=== PATIENT | female | born 1985 | race Asian ===

== ENCOUNTER 2018-05-31 15:26 | Inpatient (IN) | payer BC ==
[2018-05-31] MEDS ORDERED: Lidocaine 1% (PF) 30 ML VIAL SC PRN (15:55)
[2018-05-31] MEDS ORDERED: Ondansetron HCl/PF 4 MG/2 ML Vial IVP PRN (15:55)
[2018-05-31] MEDS ORDERED: Promethazine HCl 25 MG/ML VIAL IM PRN (15:55)
[2018-05-31] MEDS ORDERED: Ibuprofen 800 MG TAB PO PRN (15:55)
[2018-05-31 15:57] VITALS: BMI 30.7
[2018-05-31] MEDS: Lactated Ringer's 1,000 ML IV SCH (16:05)
[2018-05-31] MEDS ORDERED: CEFAZOLIN/Water 2 GM/20 ML SYRINGE ONE (16:05)
[2018-05-31 16:19] LABS: Hemoglobin 12.2 g/dL (12.0-16.0); Mean Corpuscular HGB CONC 33.8 g/dL (32.0-36.0); Mean Corpuscular Hemoglobin 29.5 pg (27.0-31.0); Mean Corpuscular Volume 87.1 fL (78.0-98.0); Mean Platelet Volume 8.1 fL (7.4-10.4); Platelet Count 202 thou/uL (130-400); RBC Distribution Width 13.1 % (11.5-14.5); Red Blood Cell (RBC) Count 4.14 mill/uL (4.20-5.40); White Blood Cell (WBC) Count 10.8 thou/uL (4.8-10.8)
[2018-05-31] MEDS: NS / Oxytocin 40 units/1000ml 1,000 ML IV PRN ×2 (16:30→18:50)
--- NOTE | 2018-05-31 16:39 | PDOC.FPRHP ---
- History of Present Illness Chief Complaint: SROM History of Present Illness: This Female presented to ED with SROM at 39.4 wks based on LMP. Her and previous pregnancies have been without complication to date. ED Course: presented to ED with SROM, transferred to - Allergies/Adverse Reactions Allergies Allergy/AdvReac Type Severity Reaction Status Date / Time Penicillins Allergy Mild Rash Verified 05/31/18 15:54 - Home Medications Medication Instructions Recorded Confirmed Type Ferrous Sulfate [Feosol] 325 mg PO BID-WM #60 tab 02/07/16 05/31/18 Rx Vit No.130/Iron/Folic 1 tab PO DAILY #30 tablet 02/07/16 05/31/18 Rx [ Tablet] Acyclovir 400 mg PO BID 05/31/18 05/31/18 History - History PMHx:HSX on suppression therapy, no active lesions. GBS positive PSHx: none FHx:none Social: negative - Review of Systems General: reports: weight/appetite/sleep changes. denies: fever/chills, night sweats Eyes: denies: eye pain, vision changes Respiratory: denies: cough, shortness of breath Cardiovascular: denies: chest pain, palpitation Gastrointestinal: reports: nausea, vomiting. denies: diarrhea Genitourinary: reports: incontinence, dysuria Skin: denies: rashes, lesions Musculoskeletal: denies: pain, tenderness Neurological: denies: numbness, syncope - Vital signs BP: [125/80] HR: [68] RR: [16] Tmax: [98.6] - Physical Exam Constitutional: other (Presented in severe pain from contractions) HEENT: normocephalic and atraumatic, no scleral icterus, grossly normal vision Heart: RRR, normal S1/S2, no murmurs/rubs/gallops Lungs: CTAB, no respiratory distress, no rales/rhonchi, no wheezing Abdomen: other (gravid uterus) Musculoskeletal: normal structure, normal tone Neurological: no focal deficit, normal sensation Skin: no rash/lesions, no jaundice Heme/Lymphatic: no unusual bruising or bleeding, no petechia Psychiatric: normal mood and affect FMR H&P: Results - Labs Result Diagrams: 05/31/18 16:00 Lab results: WBC 10.8 thou/uL (4.8-10.8) 07/13/18 16:00 Hgb 12.2 g/dL (12.0-16.0) 05/31/18 16:00 Hct 36.0 % (36.0-47.0) 05/31/18 16:00 MCV 87.1 fL (78.0-98.0) 05/31/18 16:00 Plt Count 202 thou/uL (130-400) 05/31/18 16:00 FMR H&P: A/P - Problem List (1) Spontaneous vaginal delivery Current Visit: Yes Status: Acute Code(s): O80 - ENCOUNTER FOR FULL-TERM UNCOMPLICATED DELIVERY (2) Group B streptococcal infection during Current Visit: Yes Status: Acute Code(s): O98.819 - OTH MATERNAL INFEC/ PARASTC DISEASES COMP PREG, UNSP TRI; B95.1 - STREPTOCOCCUS, GROUP B, CAUSING DISEASES CLASSD ELSWHR - Plan 1. Spontaneous vaginal delivery -TAGA female with apgars 9/9 at 1600 05/31/18 -no lacerations -EBL pending weights 2. Group B strep (+) -Treated with Cefazolin 2 g IV prior to delivery - Inadequately treated Dispo: uncomplicated vaginal delivery, transfer to post- for monitoring overnight FMR H&P: Upper Level - Plan Date/Time: 05/31/18 1633 I, [], have evaluated this patient and agree with findings/plan as outlined by fashion intern resident. Pertinent changes/additions are listed here. FMR OB Labor PN: Data - Labs Lab results: Laboratory Results - last 24 hr 05/31/18 05/31/18 05/31/18 16:00 16:00 16:00 WBC 10.8 RBC 4.14 L Hgb 12.2 Hct 36.0 MCV 87.1 MCH 29.5 MCHC 33.8 RDW 13.1 Plt Count 202 MPV 8.1 Syphilis IgG/IgM Ab Nonreactive Blood Type O POSITIVE Antibody Screen NEGATIVE HIV neg, GBS +, rubella immune, hep B -, 3 hr GTT 80, 85, 118, 80. Attending Addendum - Attending Addendum Date/Time: 05/31/18 1913 I personally evaluated the patient and discussed the management with Dr. Maharaj I agree with the History, Examination, Assessment and Plan documented above with any addition or exceptions noted below- 32 yo @39 weeks presented after SROM @1545 and ctx since early afternoon. Patient presented with advanced dilatation and rapidly progressed to complete. See delivery note for further details.
--- NOTE | 2018-05-31 16:53 | PDOC.OPDEL ---
OB Operative/Delivery Note Delivery Dr/Surgeon: Dr. Maharaj Assist: Dr. Dodd Pre-Delivery Diagnosis: active labor, ruptured membrane, other (GBS +) Procedure/Post Delivery Dx: other (GBS inadequately treated) Weeks gestation: 39 (39.4) Anesthesia: none - Findings A Sex: female - 1 min: 9 - 5 min: 9 - Additional Findings/Plan Placenta delivered: spontaneous Repaired Obstetrical Laceration: none Estimated blood loss: pending weight Compilations/Other Findings: Delivery Note: This is 32 yo F @ 39.4wks who delivered a viable M/F infant at 1640. Following an uneventful antepartum course, a vigorous female was delivered over an intact perineum in the YARELY position. Anterior Shoulder and then remainder of the body delivered. No nuchal cord. The head was held down and mouth and nares were bulb suctioned. Cord clamped after 30 secs and cut and cord blood collected. Placenta delivered intact (in the Naranjo presentation) with a 3 vessel cord noted. Fundal massage was performed and the fundus was firm. The cervix and vagina were inspected and found to be free of lacerations. went to nursery in good condition for routine care. Apgars were 9/9 at 1 & 5 minutes, respectively. Patient tolerated delivery well and went to after routine recovery/care. Post delivery plan: routine recovery <Beka Maharaj - Last Filed: 05/31/18 18:13> Attending Addendum - Attending Addendum Date/Time: 05/31/181914 I was present and personally supervised the of viable female infant to a 32 yo at 39 weeks. Apgars 9/9, Placenta delivered spontaneously and intact. 3 V cord. No epis or lacerations. IGC=461 mL. Infant and mother in stable condition. GBS (+) treated with 1 dose of cefazolin immediately prior to delivery. <Charlee Dodd - Last Filed: 05/31/18 19:22>
[2018-05-31 17:02] LABS: Syphilis Antibody Nonreactive (Nonreactive); Syphilis Antibody Index 0.08 S/CO (<1.00 Non-Reactive)
[2018-05-31 17:03] LABS: HBSAg Index 0.16 S/CO (0-0.99); Hep B Surf Ag Non-Reactive S/CO (NonReactive)
[2018-05-31] MEDS ORDERED: CEFAZOLIN/Water 2 GM/20 ML SYRINGE SLOW IVP SCH (17:30)
[2018-05-31] MEDS: Acetaminophen 500 MG TAB PO PRN (23:26)
[2018-05-31] MEDS: Ibuprofen 800 MG TAB PO PRN (23:26)
[2018-05-31] MEDS ORDERED: CEFAZOLIN 1 GM in Sodium Chloride 0.9% 100 ML IVPB SCH (23:59)
[2018-06-01] MEDS: Lactated Ringer's 1,000 ML IV SCH ×3 (00:36→16:03)
--- NOTE | 2018-06-01 06:56 | PDOC.PP ---
Post Progress Note Post Day #: 1 Subjective: pt is resting comfortably in bed and well. She had some abdominal pain overnight, treated successfully with motrin. She denies increased swelling , headache, chest pain, changes in vision or shortness of breath. vaginal bleeding is minimal. PO intake tolerated: yes Flatus: yes Ambulation: yes Vital Signs (12 hours) Temp Pulse Resp BP BP Pulse Ox 06/01/18 04:00 98.3 F 66 20 101/51 L 06/01/18 00:15 97.7 F 75 20 05/31/18 21:00 98.9 F 70 18 103/51 L 05/31/18 20:00 98.9 F 81 18 120/68 05/31/18 19:00 98.4 F 66 18 117/72 95 Weight Weight 81.193 kg - Physical Examination General: NAD Cardiovascular: no m/r/g, RRR Respiratory: clear to auscultation bilaterally, non-labored breathing Abdominal: + bowel sounds, no distention Fundus firm & at: umbilicus Neurological: no gross focal deficits Psychiatric: normal affect Result Diagrams: 05/31/18 16:00 Additional Labs: Post Labs Blood Type O POSITIVE 05/31/18 16:00 Hep Bs Antigen Non-Reactive S/CO (NonReactive) 05/31/18 16:00 (1) Spontaneous vaginal delivery Code(s): O80 - ENCOUNTER FOR FULL-TERM UNCOMPLICATED DELIVERY Status: Acute (2) Group B streptococcal infection during Code(s): O98.819 - OTH MATERNAL INFEC/PARASTC DISEASES COMP PREG, UNSP TRI; B95.1 - STREPTOCOCCUS, GROUP B, CAUSING DISEASES CLASSD ELSWHR Status: Acute - Assessment/Plan 1. Spontaneous vaginal delivery -TAGA female with apgars 9/9 at 1600 05/31/18 -no lacerations -EBL:123ml 2. Group B strep (+) -Treated with Cefazolin 2 g IV prior to delivery - Inadequately treated - continue to monitor baby Dispo: uncomplicated vaginal delivery, continue to monitor in <Beka Maharaj - Last Filed: 06/01/18 09:02> Vital Signs (12 hours) Temp Pulse Resp BP BP 06/01/18 07:56 97.9 F 60 18 07/14/18 07:55 97.9 F 60 18 95/52 L 06/01/18 04:00 98.3 F 66 20 101/51 L 06/01/18 00:15 97.7 F 75 20 Weight Weight 81.193 kg Result Diagrams: 05/31/18 16:00 Additional Labs: Post Labs Blood Type O POSITIVE 05/31/18 16:00 Hep Bs Antigen Non-Reactive S/CO (NonReactive) 05/31/18 16:00 (1) Spontaneous vaginal delivery Code(s): O80 - ENCOUNTER FOR FULL-TERM UNCOMPLICATED DELIVERY Status: Acute (2) Group B streptococcal infection during Code(s): O98.819 - OTH MATERNAL INFEC/PARASTC DISEASES COMP PREG, UNSP TRI; B95.1 - STREPTOCOCCUS, GROUP B, CAUSING DISEASES CLASSD ELSWHR Status: Acute <Charlee Dodd - Last Filed: 06/01/18 11:17> Attending Addendum - Attending Addendum Date/Time: 06/01/18 1115 I personally evaluated the patient and discussed the management with Dr. Maharaj I agree with the History, Examination, Assessment and Plan documented above with any addition or exceptions noted below- Patient without complaints. Ambulating/voiding. Afebrile VSS. A/P: 1) PPD#1 s/p - continue routine care. PLan for d/c tomorrow after 48 hours due to inadequately treated GBS. <Charlee Dodd - Last Filed: 06/01/18 11:17>
[2018-06-01] MEDS: Ibuprofen 800 MG TAB PO PRN ×3 (07:49→23:54)
[2018-06-01] MEDS: Acetaminophen 500 MG TAB PO PRN (07:51)
[2018-06-01 19:33] VITALS: TEMP 98.4
[2018-06-01] MEDS: Docusate 100 MG CAP PO PRN (23:53)
[2018-06-02] MEDS: Lactated Ringer's 1,000 ML IV SCH ×2 (01:09→07:52)
--- NOTE | 2018-06-02 07:10 | PDOC.PP ---
Post Progress Note Post Day #: 2 PO intake tolerated: yes Flatus: yes (flatus and BM+) Ambulation: yes Vital Signs (12 hours) Temp Pulse Resp 06/01/18 20:40 98.4 F 65 22 H Weight Weight 81.193 kg - Physical Examination General: NAD Cardiovascular: no m/r/g, RRR Respiratory: clear to auscultation bilaterally, non-labored breathing Abdominal: + bowel sounds, no distention, appropriately TTP Extremities: negative homans (B) Neurological: no gross focal deficits Psychiatric: A&Ox3, normal affect Result Diagrams: 05/31/18 16:00 Additional Labs: Post Labs Blood Type O POSITIVE 05/31/18 16:00 Hep Bs Antigen Non-Reactive S/CO (NonReactive) 05/31/18 16:00 (1) Spontaneous vaginal delivery Code(s): O80 - ENCOUNTER FOR FULL-TERM UNCOMPLICATED DELIVERY Status: Acute (2) Group B streptococcal infection during Code(s): O98.819 - OTH MATERNAL INFEC/PARASTC DISEASES COMP PREG, UNSP TRI; B95.1 - STREPTOCOCCUS, GROUP B, CAUSING DISEASES CLASSD ELSWHR Status: Acute (3) normal course Code(s): Z39.2 - ENCOUNTER FOR ROUTINE FOLLOW-UP Status: Acute Comment: PPD#1. Tolerating PO. Minimal Lochia. Ambulating. Pain Controlled. GBS +: Inadequately treated. Monitor for 48hrs. well. No concerns. - Assessment/Plan A&P: Assessment: 32YO day #2 s/p with delivery of a healthy female w/ h/o inadequately treated GBS. Plan: 1. day #2 s/p : - Uncomplicated course. Stooling, voiding and breast feeding well. - Ok to go home today. 2. Inadequately treated GBS: - Kept baby for an extra day to monitor for any signs of infection. baby has been afebrile since & has been feeding well. - Ok to go home today. 3. h/o HSV - Has been on appropriate prophylaxis w/ no evidence of a current outbreak. - Continue on home PPx upon discharge. <Angelina Schofield - Last Filed: 06/02/18 10:22> Vital Signs (12 hours) Temp Pulse Resp BP Pulse Ox 06/02/18 08:09 98.2 F 58 L 16 108/53 L 98 Weight Weight 81.193 kg Result Diagrams: 05/31/18 16:00 Additional Labs: Post Labs Blood Type O POSITIVE 05/31/18 16:00 Hep Bs Antigen Non-Reactive S/CO (NonReactive) 05/31/18 16:00 (1) Spontaneous vaginal delivery Code(s): O80 - ENCOUNTER FOR FULL-TERM UNCOMPLICATED DELIVERY Status: Acute (2) Group B streptococcal infection during Code(s): O98.819 - OTH MATERNAL INFEC/PARASTC DISEASES COMP PREG, UNSP TRI; B95.1 - STREPTOCOCCUS, GROUP B, CAUSING DISEASES CLASSD ELSWHR Status: Acute <Charlee Dodd - Last Filed: 06/02/18 19:44> Attending Addendum - Attending Addendum Date/Time: 06/02/181942 I personally evaluated the patient and discussed the management with Dr. Schofield I agree with the History, Examination, Assessment and Plan documented above with any addition or exceptions noted below- Patient without complaints. Afebrile VSS A/P: 1) PPD#2 S/P - plan to d/c home today. <Charlee Dodd - Last Filed: 06/02/18 19:44>
[2018-06-02] MEDS: Ibuprofen 800 MG TAB PO PRN (07:54)
[2018-06-02 08:11] VITALS: BP 108/53
[2018-06-02] MEDS: Docusate 100 MG CAP PO PRN (09:26)
--- NOTE | 2018-06-02 09:28 | PDOC.EVN ---
Event Note - Event Note Event Note: Upper level addendum for 06/02/2018 at 8:30 AM: 32 year old G3 now P3 that delivered a TAGA female at 16:21 on 05/31/2018 via at 39.4 wks gestation. No complications. 1. Term , delivered - Routine PP care - Continue - Tolerating PO, ambulating without difficulty, passing flatus - PP contraception: Will discuss further at PP visit - F/u in 6 weeks at [facility] 2. GBS positive, not adequately treated - s/p 1 dose of ancef - 48 observation of 3. Hx of HSV - On ppx therapy starting at 36 weeks - No active outbreaks at time of delivery Dispo: Plan to d/c home today. has appt scheduled with me on .
== END 2018-06-02 15:00 | disposition home or self-care (01) | DRG 774 ==
LOC: L&D/OP 15:26 → L&D 16:28 → 3SW 18:58 → 3SE 06-01 21:52
PROVIDERS: ADMIT Family Medicine; ATTEND Family Medicine
PROC: 10E0XZZ Delivery of Products of Conception, External Approach (ICD-10-PCS; principal; 2018-05-31)
DX: O99.824 Streptococcus B carrier state complicating childbirth (principal); O98.32 Other infections with a predominantly sexual mode of transmission complicating childbirth; Z3A.39 39 weeks gestation of pregnancy; Z37.0 Single live birth; Z79.899 Other long term (current) drug therapy
CPT/HCPCS: 85027; 86780; 86850; 86900; 86901; 87340; J0690; J2001; J7050

== ENCOUNTER 2020-12-23 17:45 | Inpatient (IN) | payer BC, OTHER ==
[2020-12-23] MEDS: Lactated Ringer's 1,000 ML IV SCH (19:00)
[2020-12-23 19:09] VITALS: BMI 31.4
[2020-12-23] MEDS ORDERED: Promethazine HCl 25 MG/ML VIAL IM PRN (19:53)
[2020-12-23] MEDS ORDERED: hydrALAZINE 20 MG/ML VIAL SLOW IVP PRN (19:53)
[2020-12-23] MEDS ORDERED: Ondansetron PF 4 MG/2 ML Vial IVP PRN (19:53)
[2020-12-23] MEDS ORDERED: Lidocaine 1% (PF) 30 ML VIAL SC PRN (19:53)
[2020-12-23] MEDS ORDERED: NS / Oxytocin 40 units/1000ml 1,000 ML IV PRN (20:26)
[2020-12-23 20:36] LABS: Hemoglobin 12.1 g/dL (12.0-16.0); Mean Corpuscular HGB CONC 33.9 g/dL (32.0-36.0); Mean Corpuscular Hemoglobin 29.6 pg (27.0-31.0); Mean Corpuscular Volume 87.5 fL (78.0-98.0); Mean Platelet Volume 8.6 fL (7.4-10.4); Platelet Count 198 thou/uL (130-400); RBC Distribution Width 12.8 % (11.5-14.5); Red Blood Cell (RBC) Count 4.09 mill/uL (4.20-5.40); White Blood Cell (WBC) Count 9.5 thou/uL (4.8-10.8)
--- NOTE | 2020-12-23 20:50 | PDOC.FPROB ---
FMR OB H&P: HPI - History of Present Illness Chief Complaint: mIOL Indentification: 35yo History of Present Illness: 35yo at 38.6WGA by LMP c/w 8.6w jacque presents for mIOL for oligohydramnios. She was seen in clinic today for routine f/u and FH measured smaller than previous check for the second time. She was sent for US and was found to have MVP 1.43. NST in clinic was reactive. Pt denies any problems or pain. Denies VB/LOF/discharge, endorses slight contractions every 5-10min, endorses good mvmt. Primary Care Physician: Dr. Mcelroy and Dr. 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 - OB History OB History: 2 previous uncomplicated term - Social History Social History: Denies TAD - Family History Family History: non contributory FMR OB H&P: Medications - Current Home Medications: Medication Instructions Recorded Confirmed Type Vit No.130/Iron/Folic 1 tab PO DAILY #30 tablet 06/02/18 12/23/20 Rx [ Tablet] Ferrous Sulfate [Feosol] 325 mg PO Q2DAYS 12/23/20 12/23/20 History Docusate Calcium [Surfak] 240 mg PO BID #20 cap 12/25/20 Rx Ibuprofen [Motrin] 800 mg PO Q8HR #20 tab 12/25/20 Rx Allergies/Adverse Reactions: Allergies Allergy/AdvReac Type Severity Reaction Status Date / Time Penicillins Allergy Mild Rash Verified 12/23/20 19:10 FMR OB H&P: ROS - Review of Systems General: denies: fever/chills, fatigue ENT: denies: nasal congestion, rhinorrhea Cardiovascular: denies: chest pain, palpitation Gastrointestinal: denies: abdominal pain, indigestion Genitourinary (Female): denies: incontinence, dysuria Musculoskeletal: denies: pain, stiffness Neurologic: denies: numbness, syncope, seizures Integumentary: denies: itching, rash Breast: denies: lumps, bumps Endocrine: denies: cold intolerance, heat intolerance Psychological: denies: depression, anxiety FMR OB H&P: Vital Signs - Maternal Vital signs: Vital Signs - First Documented Temp Pulse Resp BP 98.8 F 68 16 113/65 12/23/20 18:54 12/23/20 18:54 12/23/20 18:54 12/23/20 18:54 - Heart Tones Baseline: 150 Variability: moderate Acceleration: present Deceleration: absent Category: category 1 FMR OB H&P: Physical Exam - Physical Exam General: NAD, awake, alert and oriented HEENT: EOMI, MMM Neck: supple, trachea midline Chest: non-tender to palpation Breast: symmetric Heart: RRR, normal S1/S2 General: CTAB, no respiratory distress Abdomen: soft, gravid Musculoskeletal: pulses present Neurological: sensation to pain,touch and proprioception grossly normal, no focal deficit Skin: no rash, good tugor Lymphatic: no unusual bruising or bleeding, no purpura Psychiatric: intact recent and remote memory, good judgement and insight - Pelvic Exam Vulva: normal hair distribution, no lesions Cervix: no lesions SVE: 2/50/-3 - no internal HSV lesions Kim score: 4 FMR OB H&P: Results - Labs Lab results: Laboratory Results - last 24 hr 12/23/20 20:23 WBC 9.5 RBC 4.09 L Hgb 12.1 Hct 35.8 L MCV 87.5 MCH 29.6 MCHC 33.9 RDW 12.8 Plt Count 198 MPV 8.6 FMR OB H&P: A/P Discussion: Date/Time: 12/23/202046 mIOL for oligohydramnios -FHT appropriate, alice every 5-10 min ( non painful) -Kim score 4 on presentation, cephalic on US today -will induce GBS carrier -GBS bacteruria x2 and put on Keflex Ppx -Ancef 2g now, then 1g Q8hr until delivery History of HSV-1 -no active lesions -valtrex Ppx until delivery Psoriasis -quiescent, f/u with derm outpt PP contraception -pt is still undecided CHECKS * /-3 @ clinic earlier today * /-3 @ 2029, cytotec #1 ~2110 Addendum - Attending - Attending Attestation Date/Time: 12/23/202058 I personally evaluated the patient and discussed the management with Dr. Mcelroy I agree with the History, Examination, Assessment and Plan documented above with any addition or exceptions noted below. Admit for mIOL 2/2 oligo but now alice. Concern for possible PROM but patient denies any history suggestive of ROM. Continue to monitor. Repeat exam in 2 hours. Augment as needed. Cat 1 tracing. No concerns for IAI. Chapis
[2020-12-23] MEDS ORDERED: Misoprostol 100 MCG TAB VAG SCH (21:00)
[2020-12-23] MEDS ORDERED: Acyclovir 400 mg Tablet PO SCH (21:00)
[2020-12-23] MEDS ORDERED: CEFAZOLIN 2 GM in Premix Bag 1 BAG IVPB SCH (21:00)
[2020-12-23 21:18] LABS: Syphilis Antibody Nonreactive (Nonreactive); Syphilis Antibody Index 0.06 S/CO (<1.00 Non-Reactive)
--- NOTE | 2020-12-23 22:32 | PDOC.LDPN ---
Labor & Delivery Progress Note - Subjective Subjective: comfortable, painful contractions - Objective Vital signs reviewed and normal: yes General: NAD, resting Uterine fundus: non tender Dilation: 4 Effacement: 75% Station: -2 FHT: category 1 Resuscitative measures: maternal IV fluids Plan: continue plan of care -: mIOL for oligohydramnios -FHT appropriate, alice every 5-10 min ( non painful) -Kim score 4 on presentation, cephalic on US today -will induce GBS carrier -GBS bacteruria x2 and put on Keflex Ppx -Ancef 2g now, then 1g Q8hr until delivery History of HSV-1 -no active lesions -valtrex Ppx until delivery Psoriasis -quiescent, f/u with derm outpt PP contraception -pt is still undecided CHECKS * /-3 @ clinic earlier today * /-3 @ 2029, cytotec not placed 2/2 pt eating, then started alice q2- 3 min without meds * /-2 @ 2230 Addendum - Attending - Attending Attestation Date/Time: 12/23/20 8409 I personally evaluated the patient and discussed the management with Dr. Mcelroy I agree with the History, Examination, Assessment and Plan documented above with any addition or exceptions noted below. Alice on her own. In spontaneous labor with oligo. Concern for possible PPROM. No s/sx of infection. heart tones cat 1. Brenda
[2020-12-23 22:45] LABS: HBSAg Index 0.19 S/CO (0-0.99); Hep B Surf Ag Non-Reactive S/CO (NonReactive)
[2020-12-23] MEDS ORDERED: NS w/ Oxytocin 30 units 500 ML IVPB SCH (22:45)
[2020-12-24] MEDS: Lactated Ringer's 1,000 ML IV SCH ×3 (00:09→19:34)
[2020-12-24] MEDS ORDERED: Bisacodyl 10 MG SUPP PR PRN (01:13)
[2020-12-24] MEDS ORDERED: Milk Of Magnesia 30 ML UDCUP PO PRN (01:13)
[2020-12-24] MEDS ORDERED: Acetaminophen 500 MG TAB PO PRN (01:13)
[2020-12-24] MEDS ORDERED: Methylergonovine 0.2 MG/ML VIAL IM PRN (01:13)
[2020-12-24] MEDS ORDERED: Misoprostol 200 MCG TAB VAG PRN (01:13)
[2020-12-24] MEDS ORDERED: NS / Oxytocin 40 units/1000ml 1,000 ML IV SCH (01:15)
--- NOTE | 2020-12-24 01:33 | PDOC.OP ---
Operative Note - Operative Note Operative Note: Delivering Physician: Rene/Lilibeth/Clifford Attending: Dr. Plummer Procedure: Spontaneous Vaginal Delivery EBL: 50 ml Pre-op Diagnosis: 1. Term intrauterine in labor 2. Hx HSV 1, Psoriasis Post-op Diagnosis: 1. Term intrauterine , delivered 2. same as above Indications: A 35 y/o female presented for mIOL due to oligohydraminos. Delivery Note: This is 35yo F @ 38.6 wks who delivered a viable M at 00:57. Following an uneventful antepartum course, a vigorous M was delivered over an intact perineum in the occipitoanterior position. Anterior Shoulder and then remainder of the body delivered. No nuchal cord. The head was held down and mouth and nares were bulb suctioned. Cord clamped and cut and cord blood collected. Placenta presented in Naranjo position, delivered intact with a 3 vessel cord noted. Fundal massage was performed and the fundus was firm. The cervix and vagina were inspected and found to be free of lacerations. Infant went to nursery in good condition for routine care. Apgars were 8/9 at 1 & 5 minutes, respectively. Patient tolerated delivery well and went to after routine recovery/care. Attending Note: I was present and participated. Uncomplicated . Routine pp care. Chapis
[2020-12-24] MEDS: Ibuprofen 800 MG TAB PO SCH ×4 (02:16→21:33)
[2020-12-24] MEDS ORDERED: CEFAZOLIN 1 GM in Sodium Chloride 0.9% 100 ML IVPB SCH (05:00)
[2020-12-24] MEDS ORDERED: ceFAZolin 1 GM/D5W 1 GM in Premix Bag 1 BAG IVPB SCH (05:00)
[2020-12-24 06:45] LABS: SARS-CoV-2 PCR by NAA Not Detected (NotDetected)
[2020-12-24] MEDS: Docusate Calcium (SURFAK) 240 MG CAP PO SCH ×2 (08:55→21:33)
[2020-12-24] MEDS: Ferrous Sulfate 325 MG TAB PO SCH ×2 (08:56→18:04)
[2020-12-24] MEDS ORDERED: Adacel (T-DAP) 0.5 ML SYRINGE IM ONE (09:00)
[2020-12-25] MEDS: Lactated Ringer's 1,000 ML IV SCH ×3 (01:45→21:12)
--- NOTE | 2020-12-25 04:05 | PDOC.PP ---
Post Progress Note Post Day #: 1 Subjective: Doing well, with no complaint PO intake tolerated: yes Flatus: yes Ambulation: yes Vital Signs (12 hours) Temp Pulse Resp BP Pulse Ox 12/25/20 00:00 98.9 F 67 16 95/51 L 12/24/20 19:42 98.1 F 73 16 97/53 L 97 Weight Weight 83.007 kg - Physical Examination General: NAD Cardiovascular: no m/r/g, RRR Respiratory: clear to auscultation bilaterally, non-labored breathing Abdominal: + bowel sounds, no distention, appropriately TTP Neurological: no gross focal deficits Psychiatric: A&Ox3, normal affect Result Diagrams: 12/23/20 20:23 Additional Labs: Post Labs Hep Bs Antigen Non-Reactive S/CO (NonReactive) 12/23/20 20:23 Blood Type O POSITIVE 12/23/20 20:23 - Assessment/Plan PP day 1, s/p -Doing well overall -pain controlled -plus flatus, ambulation, BMs, urination without issue -no problems breast feeding History of HSV-1 -no active lesions Psoriasis -quiescent, f/u with derm outpt PP contraception -pt is still undecided dispo: could be DC'd or Bed and breakfast today Addendum - Attending - Attending Attestation Date/Time: 12/26/20 1420 I personally evaluated the patient and discussed the management with Dr. Mcelroy on 12/25/2020 I agree with the History, Examination, Assessment and Plan documented above with any addition or exceptions noted below - Patient without complaints. Ambulating/voiding. Afebrile VSS. A/P: 1) PPD#1 s/p - Doing well. Continue routine care.
[2020-12-25] MEDS: Ibuprofen 800 MG TAB PO SCH ×3 (05:18→21:25)
[2020-12-25] MEDS: Ferrous Sulfate 325 MG TAB PO SCH ×2 (08:46→16:34)
[2020-12-25] MEDS: Docusate Calcium (SURFAK) 240 MG CAP PO SCH ×2 (08:53→21:25)
[2020-12-26] MEDS: Lactated Ringer's 1,000 ML IV SCH ×2 (04:02→14:14)
[2020-12-26] MEDS: Ibuprofen 800 MG TAB PO SCH ×2 (05:12→13:08)
--- NOTE | 2020-12-26 06:55 | PDOC.PP ---
Post Progress Note Post Day #: 2 Subjective: Has had trouble sleeping, was sleeping soundly during encounter this am. reports that she is doing well, ambulating, voiding, stooling, tolerating PO. States she has had mild lochia, improving. States she has had some pain, which is improved with IBP. Plans to have baby f/u with [facility], desires circ. PO intake tolerated: yes Flatus: yes Ambulation: yes Vital Signs (12 hours) Temp Pulse Resp BP 12/25/20 20:05 98.1 F 71 16 119/60 Weight Weight 83.007 kg - Physical Examination General: NAD Respiratory: non-labored breathing Abdominal: no distention Neurological: no gross focal deficits Result Diagrams: 12/23/20 20:23 Additional Labs: Post Labs Hep Bs Antigen Non-Reactive S/CO (NonReactive) 12/23/20 20:23 Blood Type O POSITIVE 12/23/20 20:23 - Assessment/Plan #PP day 2, s/p -Doing well overall, will defer physical exam to rounding team this morning as patient has had difficulty sleeping and had just fallen asleep before encounter. -pain controlled on IBP -mild lochia -+flatus, ambulation, BMs, urination without issue -tolerating PO -no problems breast feeding -will f/u with [facility] for pp care -pp contraception: undecided #History of HSV-1 -no active lesions #Psoriasis -quiescent, f/u with derm outpt dispo: with d/c home today with f/u with [facility] Addendum - Attending - Attending Attestation Date/Time: 12/26/20 9441 I personally evaluated the patient and discussed the management with Dr. Horton I agree with the History, Examination, Assessment and Plan documented above with any addition or exceptions noted below - Patient without complaints. Ambulating/voiding. Afebrile VSS. A/P: 1) PPD#2 s/p - doing well. Plan to d/c home today.
[2020-12-26] MEDS: Ferrous Sulfate 325 MG TAB PO SCH (08:00)
[2020-12-26] MEDS: Docusate Calcium (SURFAK) 240 MG CAP PO SCH (08:05)
[2020-12-26 09:40] VITALS: BP 90/51; TEMP 97.6
== END 2020-12-26 15:15 | disposition home or self-care (01) | DRG 806 ==
LOC: L&D 17:45 → 3SW 12-24 03:16
PROVIDERS: ADMIT Student in an Organized Health Care Education/Training Program; ATTEND Student in an Organized Health Care Education/Training Program
PROC: 10E0XZZ Delivery of Products of Conception, External Approach (ICD-10-PCS; principal; 2020-12-24)
DX: O99.824 Streptococcus B carrier state complicating childbirth (principal); O41.03X0 Oligohydramnios, third trimester, not applicable or unspecified; Z37.0 Single live birth; Z88.0 Allergy status to penicillin; Z3A.38 38 weeks gestation of pregnancy; Z79.899 Other long term (current) drug therapy; Z79.1 Long term (current) use of non-steroidal anti-inflammatories (NSAID); L40.9 Psoriasis, unspecified; Z20.822 Contact with and (suspected) exposure to COVID-19
CPT/HCPCS: 36415; 85027; 86780; 86850; 86900; 86901; 87340; 87635; J0690; U0003; U0005